=== PATIENT | female | born 1985 | race Caucasian/White ===

== ENCOUNTER → 2016-06-21 | Outpatient (CLI) | payer BC ==
[~2016-06-21] MED LIST: ACET-2321 PO; ALBU8.5H INH; BIOT10003 PO; BUSP10TA3 PO; CELE200C PO; CHOL200026 PO; CYCL-375 PO; LEVO75TA PO; MONT10TA22 PO; ONDA4TAB10 PO; PROM25TA7 PO; SERT-80 PO; TIZA4CAP8 PO
== END ==
LOC: IMA 12:37
PROVIDERS: ATTEND Family Medicine
DX: N60.12 Diffuse cystic mastopathy of left breast (principal); N63 Unspecified lump in breast

== ENCOUNTER 2016-08-22 14:47 | Emergency (ER) | payer BC ==
[~2016-08-22] VITALS: Ht 157.5 cm; Wt 90.5 kg
[2016-08-22 14:49] VITALS: Ht 157.5 cm; Wt 90.5 kg
--- OUTSIDE RECORDS SUMMARY | 2016-08-22 14:52 | XMS REPORT | Continuity of Care Document ---
Author Author [facility] Organization [facility] Address Unknown Phone Unavailable Support Name Relationship Address Phone RADHA CORONA MD Caregiver [address] [place] [address] Unavailable NELSY LYNNE MD Caregiver [address] [address] [place] [address] Unavailable NELSY LYNNE MD Caregiver [address] [address] [place] [address] Unavailable CURTIS KRAMER MD Caregiver [address] [place] [address] Unavailable SANAZ JORDAN Next Of Kin [address] [place] [place], [place] [id number] Insurance Providers Guarantor Marianna Jordan Address [address] [place] [address] Email [email or web address] Policy Number [id number] Subscriber's Name Marianna Jordan Relationship 18 Self Advance Directives Directive Response Recorded Date/Time Ordered Resuscitation Status Full Code 04/21/16 8:22pm Resuscitation Documents on File No 04/21/16 9:30pm DPOA for Healthcare Only No 04/21/16 9:30pm Living Will No 04/21/16 9:30pm Problems Active Problems Medical Problem Onset Date Status Atypical chest pain Unknown Acute DIZZINESS-IMPROVED Unknown Acute Dehydration Unknown Acute Hyperthyroidism Unknown Acute Nausea & vomiting Unknown Acute dizziness-resolved Unknown Acute Past Problems Medical Problem Onset Date Chemical-induced asthma Unknown Shiga toxin-producing Escherichia coli (E. coli) (STEC), unspecified Unknown Shiga toxin-producing Escherichia coli infection Unknown Medications Current Home Medications Medication Dose Units Route Directions Days Qty Instructions Start Date Acetaminophen (Tylenol) 325 Mg Tablet 325-650 Mg Oral Every 5 Hours as needed for Discomfort 1 Tablet 04/23/16 Albuterol Sulfate (Proair Hfa 90 Mcg/Actuation) 8.5 Gm Hfa.aer.ad 2 Puff Inhalation Every 4-6 Hours as needed for Shortness Of Air 05/19/15 Biotin 10,000 Mcg Capsule 10,000 Mcg Oral Daily 03/23/16 Buspirone Hcl 10 Mg Tablet 5 Mg Oral Daily 05/19/15 Celecoxib (Celebrex) 200 Mg Capsule 200 Mg Oral Daily 03/23/16 Cholecalciferol (Vitamin D3) (Vitamin D-3) 2,000 Unit Capsule 2,000 Unit Oral Daily 03/23/16 Cyclobenzaprine Hcl 10 Mg Tablet 10 Mg Oral Three Times A Day as needed for Prn Orders 04/21/16 Levothyroxine Sodium (Levoxyl) 75 Mcg Tablet 1 Tab Oral Daily 30 Tablet 04/22/16 Montelukast Sodium (Singulair) 10 Mg Tablet 10 Mg Oral Daily Ondansetron (Ondansetron Odt) 4 Mg Tab.rapdis 4 Mg Oral Q6h/0300,0900,1500, 2100 as needed for Nausea 60 04/23/16 Promethazine Hcl 25 Mg Tablet 25 Mg Oral Every 6 Hours as needed for Nausea 60 Tablet 04/23/16 Sertraline Hcl (Zoloft) 50 Mg Tablet 50 Mg Oral Daily 01/08/13 Tizanidine Hcl 4 Mg Capsule 4 Mg Oral Daily 03/23/16 Past Home Medications Medication Directions Ordered Status Levothyroxine Sodium 88 Mcg Tablet, 88 Mcg Oral [email or web address] 05/19/15 Discontinued Levothyroxine Sodium 75 Mcg Tablet, 75 Mcg Oral [email or web address] 04/21/16 Discontinued Social History Social History Problem Response Recorded Date/Time Onset Date Status Reason for Hospitalization E-COLI/SHIGELLA 04/23/2016 4:04pm Not Applicable Not Applicable Hx Substance Use No 04/21/2016 5:52pm Not Applicable Not Applicable Hx Alcohol Use Y OCCASIONAL 04/21/2016 5:52pm Not Applicable Not Applicable Has the pt used tobacco in the last 12 months No 04/21/2016 9:25pm Not Applicable Not Applicable Tobacco Usage none 05/19/2015 4:32pm Not Applicable Not Applicable Query Response Start Date Stop Date Smoking Status Former smoker Hospital Discharge Instructions Instructions: Care Instructions: Reason for Hospitalization: E-COLI/SHIGELLA I was in the hospital because (patient own words): BECAUSE I CAN'T KEEP ANYTHING DOWN OR IN. Discharge Diet: Regular- as tolerated Discharge Activity: As tolerated Follow Up Appointments: Please f/u with Dr. Lynne/ González Mayes beginning of next week. Will call her with an appt.APPOINTMENT ON AT 11:30. Pending Lab / Results: No Pending Lab Wound/Incision Care: N/A Pain Management/Treatment: Tylenol as needed. Expected Signs/Symptoms: Diarrhea may continue. Cont. to drink plenty of fluids. May take anti-nausea medicine as needed. Notify Physician If: Dehydration sx return. During Business Hours:: Please call the physician's office at [phone] After Business Hours:: Please call [phone] and have the operator coating furnace page the physician. Condition at time of discharge: Good Plan of Care Discharge Date 04/23/16 4:20pm Disposition 01 DISCHARGED HOME, SELF-CARE Instructions/Education Provided Gastritis (DC) Prescriptions See Medication Section Care Plan and Goals See Discharge Instructions Section Functional Status Query Response Date Recorded Mobility Status Ambulatory April 23, 2016 4:04pm Assistive Devices None April 23, 2016 4:04pm Activity Limitations None April 23, 2016 4:04pm Feeding Ability Independent April 23, 2016 4:04pm Toileting Ability Independent April 23, 2016 4:04pm Grooming Ability Independent April 23, 2016 4:04pm Dressing Ability Independent April 23, 2016 4:04pm Driving Ability Independent April 23, 2016 4:04pm Housework Ability Independent April 23, 2016 4:04pm Meal Preparation Ability Independent April 23, 2016 4:04pm Stair Climbing Ability Independent April 23, 2016 4:04pm Ability to complete ADL's impeded by No change April 23, 2016 4:04pm Cognitive/Perceptual Impairments None April 23, 2016 4:04pm Preferred Method of Learning Reading April 21, 2016 9:31pm Allergies, Adverse Reactions, Alerts No known allergies. Immunizations Query Response on File Recorded Date/Time Hx Influenza Vaccination Y DEC 2015 04/21/16 9:25pm Hx Pneumococcal Vaccination No 04/22/16 12:55pm Hx Influenza Vaccination Y DEC 2015 04/21/16 9:25pm Influenza Vaccine Hx 01/1004/21/16 9:33pm Vital Signs Acute Vital Signs Vital Response Date/Time Temperature (Fahrenheit) 98.0 deg F (96.8 - 99.1) 04/23/2016 12:30pm Temperature (Calculated Celsius) 36.80011 degrees C (36.0 - 37.3) 04/23/2016 12:30pm Pulse Rate (adult) 94 bpm (60 - 100) 04/23/2016 12:30pm Respiratory Rate 18 breaths/min (10 - 20) 04/23/2016 12:30pm O2 Sat by Pulse Oximetry 98 % (90 - 100) 04/23/2016 12:30pm Oxygen Delivery Method Room Air 04/23/2016 12:30pm Blood Pressure 126/79 mm Hg 04/23/2016 12:30pm Blood Pressure Source Automatic Cuff 04/23/2016 12:30pm Height (Feet) 5 feet 04/23/2016 10:21am Height (Inches) 2.00 inches 04/23/2016 10:21am Weight (Kilograms) 89.200 kg 04/23/2016 8:48am Body Mass Index (BMI) 36.3 04/21/2016 9:24pm Results Laboratory Results Test Name Result Units Flags Reference Collection Date/Time Result Date/ Time Comments Stool Occult Blood POSITIVE A 04/20/2016 2:27pm 04/20/2016 2:50pm Stool Campylobacter PCR NEGATIVE NEGATIVE 04/20/2016 2:27pm 2016 4:06pm Stool C. difficile Toxin (PCR) NEGATIVE NEGATIVE 04/20/2016 2:27pm 4:06pm Stool Plesiomonas shigelloides PCR NEGATIVE NEGATIVE 04/20/2016 2: 27pm 04/20/2016 4:06pm Stool Salmonella PCR NEGATIVE NEGATIVE 04/20/2016 2:27pm 04/20/2016 4 :06pm Stool Vibrio (PCR) NEGATIVE NEGATIVE 04/20/2016 2:27pm 04/20/2016 4: 06pm Stool Vibrio cholera (PCR) NEGATIVE NEGATIVE 04/20/2016 2:27pm 2016 4:06pm Stool Yersinia enterocolitica (PCR) NEGATIVE NEGATIVE 04/20/2016 2: 27pm 04/20/2016 4:06pm Stool Enteroaggregative E. coli PCR NEGATIVE NEGATIVE 04/20/2016 2: 27pm 04/20/2016 4:06pm Stool Enteropathogenic E. coli (PCR N/A NEGATIVE 04/20/2016 2:27pm 4:06pm Stool Enterotoxigenic Ecoli PCR NEGATIVE NEGATIVE 04/20/2016 2:27pm 04/20/2016 4:06pm Stool E. coli Shiga Toxins DETECTED *A NEGATIVE 04/20/2016 2:27pm 04/20 4:06pm Stool E coli O157 PCR NEGATIVE NA/NEG 04/20/2016 2:27pm 04/20/2016 4: 06pm Stool Shigella/EIEC (PCR) NEGATIVE NEGATIVE 04/20/2016 2:27pm 2016 4:06pm Stool Cryptosporidium PCR NEGATIVE NEGATIVE 04/20/2016 2:27pm 2016 4:06pm Stool Cyclospora species Detection NEGATIVE NEGATIVE 04/20/2016 2: 27pm 04/20/2016 4:06pm Stool Entamoeba (PCR) NEGATIVE NEGATIVE 04/20/2016 2:27pm 04/20/2016 4:06pm Stool Giardia Lamblia PCR NEGATIVE NEGATIVE 04/20/2016 2:27pm 2016 4:06pm Stool Adenovirus (PCR) NEGATIVE NEGATIVE 04/20/2016 2:27pm 2016 4:06pm Stool Astrovirus (PCR) NEGATIVE NEGATIVE 04/20/2016 2:27pm 2016 4:06pm Stool Norovirus GI/GII PCR NEGATIVE NEGATIVE 04/20/2016 2:27pm 2016 4:06pm Stool Rotavirus A PCR NEGATIVE NEGATIVE 04/20/2016 2:27pm 04/20/2016 4:06pm Stool Sapovirus (PCR) NEGATIVE NEGATIVE 04/20/2016 2:27pm 04/20/2016 4:06pm Aerobic Organism Identification SEND OUT 04/20/2016 2:27pm 2016 7:11am White Blood Count 12.2 T/MM3 H 4.5-11.0 04/23/2016 4:50am 04/23/2016 5: 46am Red Blood Count 3.91 M/MM3 L 4.00-5.20 04/23/2016 4:50am 04/23/2016 5: 46am Hemoglobin 11.4 GM/DL L 12-16 04/23/2016 4:50am 04/23/2016 5:46am Hematocrit 35.7 % L 36-46 04/23/2016 4:50am 04/23/2016 5:46am Mean Corpuscular Volume 91.3 UM3 80-100 04/23/2016 4:50am 04/23/2016 5: 46am Mean Corpuscular Hemoglobin 29.2 UUG 26-34 04/23/2016 4:50am 2016 5:46am Mean Corpuscular Hemoglobin Concent 31.9 GM/DL 31-37 04/23/2016 4:50am 04/23/2016 5:46am RDW Standard Deviation 41.2 FL 36.9-50.2 04/23/2016 4:50am 04/23/2016 5 :46am Platelet Count 180 T/MM3 130-400 04/23/2016 4:50am 04/23/2016 5:46am Mean Platelet Volume 11.0 UM3 9.4-12.4 04/23/2016 4:50am 04/23/2016 5: 46am Neutrophils (%) (Auto) 80.2 % H 33-66 04/22/2016 5:02am 04/22/2016 5: 41am Lymphocytes (%) (Auto) 13.2 % L 23-45 04/22/2016 5:02am 04/22/2016 5: 41am Monocytes (%) (Auto) 5.8 % 0-9.0 04/22/2016 5:02am 04/22/2016 5:41am Eosinophils (%) (Auto) 0.4 % 0-4 04/22/2016 5:02am 04/22/2016 5:41am Basophils (%) (Auto) 0.1 % 0-2 04/22/2016 5:02am 04/22/2016 5:41am Immature Granulocyte % (Auto) 0.3 % 0.0-0.5 04/22/2016 5:02am 2016 5:41am Absolute Neutrophils (auto) 10.7 T/MM3 H 1.8-7.7 04/22/2016 5:02am 04/22 5:41am Absolute Lymphocytes (auto) 1.8 T/MM3 1-4.8 04/22/2016 5:02am 2016 5:41am Absolute Monocytes (auto) 0.8 T/MM3 0-0.8 04/22/2016 5:02am 04/22/2016 5:41am Absolute Eosinophils (auto) 0.1 T/MM3 0-0.5 04/22/2016 5:02am 2016 5:41am Absolute Basophils (auto) 0.0 T/MM3 0-0.2 04/22/2016 5:02am 04/22/2016 5:41am Absolute Immature Granulocyte (auto 0.04 T/MM3 H 0.00-0.03 04/22/2016 5: 02am 04/22/2016 5:41am Neutrophils % (Manual) 69.0 % H 33-66 04/23/2016 4:50am 04/23/2016 6: 17am Band Neutrophils % 1.0 % 0-6 04/23/2016 4:50am 04/23/2016 6:17am Lymphocytes % (Manual) 21.0 % L 23-45 04/23/2016 4:50am 04/23/2016 6: 17am Monocytes % (Manual) 6.0 % 0-9.0 04/23/2016 4:50am 04/23/2016 6:17am Eosinophils % (Manual) 2.0 % 0-4 04/23/2016 4:50am 04/23/2016 6:17am Reactive Lymphocytes % 1.0 % H 0-0 04/23/2016 4:50am 04/23/2016 6:17am Band Neutrophils # 0.1 T/MM3 04/23/2016 4:50am 04/23/2016 6:17am Absolute Neutrophils (Manual) 8.4 T/MM3 H 1.8-7.7 04/23/2016 4:50am 6:17am Lymphocytes # (Manual) 2.6 T/MM3 1-4.8 04/23/2016 4:50am 04/23/2016 6: 17am Monocytes # (Manual) 0.7 T/MM3 0-0.8 04/23/2016 4:50am 04/23/2016 6: 17am Eosinophils # (Manual) 0.2 T/MM3 0-0.5 04/23/2016 4:50am 04/23/2016 6: 17am Reactive Lymphocytes # 0.1 T/MM3 H 0-0 04/23/2016 4:50am 04/23/2016 6: 17am Red Cell Morphology Comment NORMAL 04/23/2016 4:50am 04/23/2016 6: 17am Icterus Index < 2 0-7 04/23/2016 4:50am 04/23/2016 5:56am Chemistry Specimen Hemolysis < 15 0-25 04/23/2016 4:50am 04/23/2016 5 :56am 0-25: Specimen Exhibited No Hemolysis. Turbidity < 20 0-20 04/23/2016 4:50am 04/23/2016 5:56am Sodium Level 141 MEQ/L 134-144 04/23/2016 4:50am 04/23/2016 5:56am Potassium Level 3.8 MEQ/L 3.6-5 04/23/2016 4:50am 04/23/2016 5:56am Chloride Level 110 MEQ/L H 98-107 04/23/2016 4:50am 04/23/2016 5:56am Carbon Dioxide Level 24 MEQ/L 22-30 04/23/2016 4:50am 04/23/2016 5: 56am Anion Gap 7 MEQ/L 5-15 04/23/2016 4:50am 04/23/2016 5:56am Blood Urea Nitrogen < 2.0 MG/DL L 7-17 04/23/2016 4:50am 04/23/2016 5: 56am Creatinine 0.7 MG/DL 0.7-1.2 04/23/2016 4:50am 04/23/2016 5:56am BUN/Creatinine Ratio 5 RATIO L 6-26 04/22/2016 5:02am 04/22/2016 5:55am Glomerular Filtration Rate Calc 99 04/23/2016 4:50am 04/23/2016 5: 56am Glucose Level 89 MG/DL 65-110 04/23/2016 4:50am 04/23/2016 5:56am Calculated Osmolality 264 MOSM/KG 261-280 04/22/2016 5:02am 04/22/2016 5:55am Calcium Level 8.3 MG/DL L 8.4-10.2 04/23/2016 4:50am 04/23/2016 5:56am Total Bilirubin 0.30 MG/DL 0.20-1.30 04/23/2016 4:50am 04/23/2016 5: 56am Alkaline Phosphatase 88 U/L 38-126 04/23/2016 4:50am 04/23/2016 5:56am Total Protein 5.8 G/DL L 6.3-8.2 04/23/2016 4:50am 04/23/2016 5:56am Albumin 3.1 G/DL L 3.5-5.0 04/23/2016 4:50am 04/23/2016 5:56am Globulin 2.7 G/DL 2.4-3.6 04/23/2016 4:50am 04/23/2016 5:56am Albumin/Globulin Ratio 1.1 RATIO 1.1-2.2 04/23/2016 4:50am 04/23/2016 5 :56am Aspartate Amino Transf (AST/SGOT) 27 U/L 14-36 04/23/2016 4:50am 2016 5:56am Alanine Aminotransferase (ALT/SGPT) 45 U/L 9-52 04/23/2016 4:50am 04/23 5:56am Lipase 26 U/L 23-300 04/21/2016 5:48pm 04/21/2016 6:06pm Plasma Lactate 0.8 MMOL/L 0.6-2.2 04/21/2016 10:32pm 04/21/2016 10: 48pm Procalcitonin < 0.05 NG/ML 04/21/2016 10:32pm 04/21/2016 11:04pm PCT </=0.5 ng/mL - sepsis not likely; PCT >0.5 and </=2 ng/mL - sepsis possible; PCT >2 ng/mL - sepsis likely; PCT >/=10 ng/mL - systemic inflammatory response - sepsis or septic shock highly indicated. Hepatitis A IgM Antibody NEGATIVE NEGATIVE 04/21/2016 5:47pm 2016 12:27pm Hepatitis B Surface Antigen NEGATIVE NEGATIVE 04/21/2016 5:47pm 04/22 12:21pm Hepatitis B Core IgM Antibody NEGATIVE NEGATIVE 04/21/2016 5:47pm 12:27pm Hepatitis C Antibody NEGATIVE NEGATIVE 04/21/2016 5:47pm 04/22/2016 12:39pm Urine Collection Type CLEANCATCH-MIDSTREAM 04/21/2016 6:54pm 2016 6:58pm Urine Color YELLOW YELLOW 04/21/2016 6:54pm 04/21/2016 6:58pm Urine Turbidity SL CLOUDY CLEAR 04/21/2016 6:54pm 04/21/2016 6:58pm Urine Specific [place] >=1.030 H 1.015-1.025 04/21/2016 6:54pm 2016 6:58pm Urine pH 6.0 5.0-8.0 04/21/2016 6:54pm 04/21/2016 6:58pm Urine Leukocyte Esterase NEGATIVE NEGATIVE 04/21/2016 6:54pm 2016 6:58pm Urine Nitrite NEGATIVE NEGATIVE 04/21/2016 6:54pm 04/21/2016 6:58pm Urine Protein NEGATIVE NEGATIVE 04/21/2016 6:54pm 04/21/2016 6:58pm Urine Glucose (UA) NEGATIVE NEGATIVE 04/21/2016 6:54pm 04/21/2016 6: 58pm Urine Ketones 3+ A NEGATIVE 04/21/2016 6:54pm 04/21/2016 6:58pm Urine Urobilinogen 0.2 EU/DL NORMAL 04/21/2016 6:54pm 04/21/2016 6: 58pm Urine Bilirubin 1+ A NEGATIVE 04/21/2016 6:54pm 04/21/2016 6:58pm Urine Blood 2+ A NEGATIVE 04/21/2016 6:54pm 04/21/2016 6:58pm Urine WBC 0-1 /HPF 0-5 04/21/2016 6:54pm 04/21/2016 7:31pm Urine RBC 0-1 /HPF 0-3 04/21/2016 6:54pm 04/21/2016 7:31pm Urine Squamous Epithelial Cells 5-10 04/21/2016 6:54pm 04/21/2016 7 :31pm Urine Bacteria 1+ H NEGATIVE 04/21/2016 6:54pm 04/21/2016 7:31pm Urine Amorphous Urates FEW 04/21/2016 6:54pm 04/21/2016 7:31pm Urine Mucus PRESENT 04/21/2016 6:54pm 04/21/2016 7:31pm Urine Culture Indicated CULT NOT INDICATED 04/21/2016 6:54pm 2016 7:31pm Microbiology Results Procedure Source Organism/Result Collection Date/Time Result Date/Time Result Status Blood Culture Peripheral/Iv Start NO GROWTH AFTER 24 HOURS 04/21/2016 10: 32pm 04/22/2016 10:36pm Preliminary Procedures Procedure Status Date Provider(s) Chest x-ray 2vw frontal&latl Completed 03/23/16 Airway inhalation treatment Completed 03/23/16 Ther/proph/diag inj sc/im Completed 03/23/16 Emergency dept visit Completed 03/23/16 090445"INJECTION, DEXAMETHASONE SODIUM PHOSPHATE, 1MG" Completed 03/23/16 Hydrate iv infusion add-on Completed 04/21/16 Ther/proph/diag inj iv push Completed 04/21/16 Tx/pro/dx inj new drug addon Completed 04/21/16 Encounters Encounter Location Arrival/Admit Date Discharge/Depart Date Attending Provider Discharged Inpatient [facility] 04/22/16 1:14pm 04/23/16 4:20pm NELSY LYNNE MD Departed Emergency Room [facility] 04/21/16 4:04am 04/21/16 6: 35am JULYBRI DO Registered Clinic [facility] 04/20/16 2:11pm NELSY LYNNE MD Departed Emergency Room [facility] 03/23/16 9:28am 03/23/16 12: 04pm RELL FORD MD
--- NOTE | 2016-08-22 14:57 | NUR ---
LISET FRENCH IN
--- NOTE | 2016-08-22 15:08 | ERPDOC ---
Departure Disposition Decision Date: August 22, 2016 Disposition Decision Time: 15:59 Disposition: 01 DISCHARGED HOME, SELF-CARE Impression Impression Impression: Primary Impression: Laceration Severity: Moderate Condition: Stable Seen By: Mid-level only Referrals: NELSY LYNNE MD (Family) Patient Instructions: Laceration (ED) Problems/Meds/Labs Reviewed?: Yes Medications reviewed and manag: Yes Additional Instructions: Take the Augmentin daily for the next 5 days. Wash the scratches twice daily with a non tearing soap. I do want you to have the sutures taken out in the next 5 days with your primary care provider. If any increased redness/swelling/ tenderness then return to ER. Follow up care ordered?: Yes Mental Status: Alert Scripts Amoxicillin/Potassium Clav (Augmentin 875-125 Tablet) 1 Each Tablet 1 TAB PO BID, #10 TAB 0 Refills TAKE WITH MEALS Prov: YAS GARRISON MOLDED [employer]S INSPECTOR 08/22/16 HPI - EENT General General Chief Complaint: Eye Problems Stated Complaint: CAT SCRATCH TO LT EYE Time Seen by Provider: 14:49 Source: patient Exam Limitations: no limitations HPI - EENT General Initial Comments She was at home today. Her cat was up on an elevated surface and she was trying to get it down. She did end up with the cat scratching her on the left eye and cheek. Last Tetanus vaccination was 2015. The cat is up to date on its vaccinations. There is a scratch that goes across the left eyelid and does gape. She does not have any trouble with her vision. Does wear contacts and did take those out after the incident. Is not having any pain in the eye specifically or tearing. Occurred At: home Onset/Timing: Rapid Duration: 1 hr Severity: moderate Location: eye (L) Prearrival Treatment: no prearrival treatment Associated Symptoms: DENIES: change in hearing, cough, drooling, ear drainage, facial pain/swelling, fever, malaise, nasal congestion/drainage, poor fluid intake, poor solids intake, sinus infection, sore throat, tooth pain, voice change Allergies: Coded Allergies: No Known Allergies (Unverified , 04/21/16) Past History Patient Surgical History [place] teeth Past Medical History Metabolic: hypothyroidism Respiratory: asthma Psychological: anxiety, depression Surgical History Denies Surgeries Family History Family PMH: FOUND: other Vaccines Hx Influenza Vaccination: Yes (DEC 2015) Hx Pneumococcal Vaccination: No Social History Substance Use Type: does not use Alcohol Intake: none Review of Systems Constitutional Constitutional: DENIES: chills, dizziness, fatigue, fever, weakness Eyes Vision: DENIES: blurring, double vision Integumentary Skin: other (Cat scratch from above the nose down the left eyelid and onto the left cheek. ) Physical Exam General General Nourishment: well nourished, well developed, appears stated age, no acute distress, adult General Body Habitus: well groomed Vitals and Pain First Documented Vital Signs Date Time Temp Pulse Resp B/P Pulse Ox O2 Delivery O2 Flow Rate FiO2 08/22/16 14:49 98.2 75 16 130/96 97 Room Air Weight: Kilograms: 90.500 Height (feet): 5 Height (inches): 2.00 Triage Pain Scale: RN VS reviewed by Provider: Yes Normal Exams: Neurologic: Patient is alert, and oriented Psychiatric: Patient exhibits, appropriate attention, emotion and affect Eyes (brief) Eyes Brief: found: EOMI, PERRL, not found: foreign body ENMT (brief) ENMT Brief: FOUND: TM clear, TM good light reflex, ear canals clear, mucosa moist, normal dentition, normal tonsils, NOT FOUND: lesions, nasal erythema, nasal exudate, nasal swelling, petechiae, pharnyx erythema, tonsillar deviation Integumentary (brief) Integumentary Brief: FOUND: other (There is a cat scratch from above the nose across the left eyelid and down onto the left cheek. The scratch across the eyelid is gaping but does approximate well. There is mild swelling of the eyelid as well.) Differential Diagnoses Considering: Other (Corneal abrasion, laceration, inadequate vaccination) Procedures Procedures Performed Procedures Performed: Laceration Repair Eye Procedure Procedure Eye : Eyes: Left eye Topical Anesthetic Drops: YES: Tetracaine drops Slit Lamp Used?: No Cornea: NOT FOUND: abrasion, foreign body, ulcer Conjunctiva: NOT FOUND: ulcer Lids: FOUND: other (swelling and laceration), NOT FOUND: blepharitis, chalazion, sty Fluorescein used?: Yes Fluorescein uptake?: No Medications: antibiotic drops, antibiotic ointment Eye Patch: No Laceration/Wound Repair Wound/Laceration Repair : Wound Location: face (left eyelid) Wound Length (cm): 1.5 Depth, Shape: subcutaneous, linear Explored: clean Irrigated: saline Prep: chlorasept Anesthesia: 1% Lidocaine Type of Block: local Repaired With: Sutures Suture Size: 6:0 Suture Type: prolene Number of Sutures: 3 Layer Closure?: No Progress Results/Orders Orders Procedure Category Date Status Time Fluorescein Sodium PHA 08/22/16 Complete (Ful-Rosemarie) 15:15 Tetracaine 0.5% Eye PHA 08/22/16 Complete Drops (Tetracaine 0. 15:15 Eye Wash Solution PHA 08/22/16 Complete (Eye-Stream) 15:15 Lidocaine 1% PHA 08/22/16 Complete (Xylocaine 1%) 15:15 Medications Current ED Medications Fluorescein Sodium (Ful-Rosemarie) 1 mg O ONCE LEFT EYE Last administered on 15:06; Start 08/22/16 at 15:15; Stop 08/22/16 at 15:16; Status DC Tetracaine HCl (Tetracaine 0.5% Eye Drops) 1 drop O ONCE LEFT EYE Last administered on 08/22/16 15:07; Start 08/22/16 at 15:15; Stop 08/22/16 at 15:16 ; Status DC Eye Irrigation Solution (Eye-Stream) 30 ml O ONCE LEFT EYE Last administered on 08/22/16 15:06; Start 08/22/16 at 15:15; Stop 08/22/16 at 15:16; Status DC Lidocaine HCl (Xylocaine 1%) 100 mg O ONCE INFIL Last administered on 15:06; Start 08/22/16 at 15:15; Stop 08/22/16 at 15:16; Status DC Progress Progress Did stain the left eye and no scratch or abrasion noted to the cornea or the sclera. Did suture the left eyelid after irrigation with saline and chlorhexidine with 3 sutures just to close the gaping. Did talk with Ligia about cat scratches being high risk for infection. Will go ahead and cover her with Augmentin. Sutures taken out in PCP office in 5 days. Wash twice daily with soap and water. YAS GARRISON APRN August 22, 2016 15:08
[2016-08-22] MEDS ORDERED: LEVO88TA PO (15:14)
[2016-08-22] MEDS ORDERED: FLUORESCEIN SODIUM 1 MG/STRIP LEFT EYE ONE (15:15)
[2016-08-22] MEDS ORDERED: TETRACAINE 0.5% EYE DROPS 4ml BOTTLE LEFT EYE ONE (15:15)
[2016-08-22] MEDS ORDERED: LIDOCAINE 1% (10mg/ml) 30ml SDV INFIL ONE (15:15)
[2016-08-22] MEDS ORDERED: EYE WASH SOLUTION 30 ML BOTTLE LEFT EYE ONE (15:15)
--- NOTE | 2016-08-22 15:42 | NUR ---
WOUND REPAIR LISET FRENCH IN TO CLEAN & REPAIR WOUNDS
[2016-08-22] MEDS ORDERED: AMOX-351 PO (16:02)
[2016-08-22 16:08] VITALS: BP 128/80; PULSE 87; RESP 16; TEMP 98.7; O2SAT 97
== END 2016-08-22 16:08 | disposition home or self-care (01) ==
LOC: ED 14:47
DX: S01.112A Laceration without foreign body of left eyelid and periocular area, initial encounter (principal); S01.412A Laceration without foreign body of left cheek and temporomandibular area, initial encounter; W55.03XA Scratched by cat, initial encounter; Y93.89 Activity, other specified; Y92.009 Unspecified place in unspecified non-institutional (private) residence as the place of occurrence of the external cause; Y99.8 Other external cause status